=== PATIENT | male | born 1950 | race Hispanic/Latino ===

== ENCOUNTER 2020-01-27 22:50 | Emergency (ER) | payer OTHER ==
[~2020-01-27] VITALS: Ht 170.2 cm; Wt 84.8 kg
[~2020-01-27 22:50] MED LIST: ATENOLOL25 MG PO; HYDROCHLOROTHIA25 MG PO; TERAZOSIN HCL2 MG PO
== END 2020-01-27 23:55 | disposition home or self-care (01) ==
LOC: ED 22:50
DX: U07.1 COVID-19 (principal); I10 Essential (primary) hypertension; Z87.891 Personal history of nicotine dependence; Z79.899 Other long term (current) drug therapy
CPT/HCPCS: 71045; 99283-25; C9803; U0002

== ENCOUNTER 2025-03-01 08:04 | Day surgery (SDC) | payer OTHER ==
[~2025-03-01] VITALS: Ht 170.2 cm; Wt 81.8 kg
[~2025-03-01 08:04] MED LIST changes: +CEFAZOLIN SODIUM 2 GM/20 ML SYR IV SCH; +HEParin SOD (PORCINE) 5,000 UNIT/ML SDV SUB-Q SCH; +IBLOOD GLUCOSE TEST STRIP 1 EA TEST VI PRN; +LACTATED RINGER'S 1,000 ML IV SCH; +LIDOCAINE HCL 1% 5 ML SDV INJ ONE; +LIPITOR20 MG PO; +LISINOPRIL5 MG PO; +OMEPRAZOLE20 MG PO
[2025-03-01 08:28] VITALS: BP 129/88
[2025-03-01] MEDS ORDERED: Ropivacaine HCl 0.5% 30 ML VIAL ONE (09:44)
[2025-03-01] MEDS ORDERED: LIDOCAINE HCL 2% 5 ML SDV ONE ×2 (09:44→10:51)
[2025-03-01] MEDS ORDERED: fentaNYL citrate 100 MCG/2 ML VIAL ONE (10:51)
[2025-03-01] MEDS ORDERED: METOCLOPRAMIDE HCL 10 MG/2 ML SDV IV PRN (12:00)
[2025-03-01] MEDS ORDERED: NALOXONE HCL 0.4 MG SYR IV PRN ×2 (12:00→13:00)
[2025-03-01] MEDS ORDERED: IBLOOD GLUCOSE TEST STRIP 1 EA TEST VI PRN (12:00)
[2025-03-01] MEDS ORDERED: HYDROmorphone HCL 1 MG/ML SYR IV PRN (12:00)
[2025-03-01] MEDS ORDERED: fentaNYL citrate 50 MCG/ML SDV IV PRN (12:00)
[2025-03-01] MEDS ORDERED: DEXAMETHASONE SOD PHOS 4 MG/ML VIAL ONE (12:32)
[2025-03-01] MEDS ORDERED: ACETAMINOPHEN 1,000 MG/100 ML VIAL ONE (12:32)
--- NOTE | 2025-03-01 12:40 | NUR ---
03/01/25 Dereck0 Yolie Neal 1229-PATIENT ARRIVED TO PACU ON 6L MASK NONAROUASABLE ORAL AIRWAY IN PLACE RN DOING JAW THRUST TO MAINTAIN OPEN AIRWAY. DRESSING TO RIGHT GROIN CDI. GUARD AT BEDSIDE PATIENT HAS CUFFS TO LEGS. 1233-PATIENT REACTIVE TO VERBAL STIMULI OPENING EYES ORAL AIRWAY REMOVED. 6L MASK RR EVEN. IVF INFUSING 1235-GILMAR IMPREGNATING TANK OPERATOR AT BEDSIDE ADMINISTERED IV TYLENOL. PATIENT SLEEPING 100% 6L MASK RR EVEN
[2025-03-01] MEDS ORDERED: MOTRIN IB200 MG PO (12:53)
[2025-03-01] MEDS ORDERED: TYLENOL EXTRA500 MG PO (12:53)
[2025-03-01] MEDS ORDERED: HYDROCODON-ACE1 EAC8 PO (12:54)
[2025-03-01] MEDS ORDERED: HYDROCODONE/ACETA 5/325 TAB PO PRN (13:00)
[2025-03-01] MEDS ORDERED: IBUPROFEN 600 MG TAB PO PRN (13:00)
[2025-03-01] MEDS ORDERED: ACETAMINOPHEN 500 MG TAB PO PRN (13:00)
[2025-03-01] MEDS ORDERED: LACTATED RINGER'S 1,000 ML IV SCH (13:00)
[2025-03-01 13:19] VITALS: BP 140/92
--- NOTE | 2025-03-01 13:24 | NUR ---
PATIENT BACK IN DAY SURGERY ROOM FROM PACU. DENIES PAIN. RIGHT GROIN DRESSING CDI. VS CHECKED. IV SITE WNL. SCDs ON. TOLERATING WATER. GIVEN JELLO TO EAT. GUARD AT BEDSIDE.
[2025-03-01 14:05] VITALS: BP 129/85
--- NOTE | 2025-03-01 14:45 | NUR ---
1345: CHECKED PATIENT. DENIES PAIN. PATIENT ASSISTED OOB WITH GUARD. VOID 275 ML. PATIENT TOLERATED GETTING OOB AND AMBULATING WELL. PATIENT SITTING ON SIDE OF BED. 1400: DISCHARGE INSTRUCTIONS GIVEN TO PATIENT. VS CHECKED. 1414: IV DC'D WNL. TIP INTACT. DRESSING APPLIED. 1416: PATIENT DISCHARGED TO HOME WITH TRANSPORT GUARD VIA WHEELCHAIR. ENVELOPE WITH PINK SHEET GIVEN TO GUARD. 1420: REPORT CALLED TO [facility].
[2025-03-01] MEDS ORDERED: SEVOFLURANE 250 ML BTL INH ONE (15:57)
--- NOTE | 2025-03-01 22:31 | EKG ---
[facility] [address] [facility] [place] [address] Signed Sinus bradycardia Otherwise normal ECG Confirmed by Kaleigh Hall MD ([id number]) on 03/01/2025 10:30:53 PM Electronically Signed By: KALEIGH HALL MD 03/01/252230 PATIENT NAME: KRYSTAL WYMAN Electrocardiogram DATE OF : 54 PHYSICIAN: KALEIGH HALL MD REPORT #: [id number] REPORT IS CONFIDENTIAL AND NOT TO BE RELEASED WITHOUT AUTHORIZATION
--- NOTE | 2025-03-02 11:57 | OR ---
[facility] [address] [place], [place] [address] Signed DATE OF OPERATION: 03/01/2025 SURGEON: Caitlin Rowe MD PREOPERATIVE DIAGNOSIS: Large right inguinal hernia. POSTOPERATIVE DIAGNOSIS: Large right inguinal hernia, direct and indirect. PROCEDURES: 1. Repair of right indirect inguinal hernia with implantation of Prolene mesh and excision and ligation of hernia sac. 2. Excision of cord lipoma. ANESTHESIA: General endotracheal, Will Tristan, MANAGER ENTERPRISE and local 10 mL of 0.25% Marcaine with epinephrine. INDICATION: This 74-year-old man is a prisoner at [facility] and has had a reducible right inguinal hernia for quite some time. It is increasingly symptomatic. Imaging study in the past has shown enteric contents within the hernia from my understanding. He is admitted at this time to undergo repair of the right inguinal hernia. He understands the risk of bleeding, infection, recurrence and of course other unforeseen complications including problems with the spermatic cord, chronic pain, and so on. Understanding these risks, he wished to proceed. FINDINGS: The hernia was bulky in part related to a funnel type indirect hernia sac, which also included significant weakening of the floor itself. Hernia sac was opened and from the cord structures showing no sign of sliding component, but there were intestinal loops within it. The hernia sac was ligated and excised at its neck and the attenuated fibers of the transversalis fascia accounting for concurrent direct hernia also noted. Repair consisted of excision of the hernia sac with ligation and implantation of Prolene mesh in an underlay technique. Additionally, a cord lipoma was also excised. The ilioinguinal nerve was identified well and clearly preserved throughout the course of procedure. DESCRIPTION OF PROCEDURE: Electronically Signed By: CAITLIN ROWE MD 03/02/25 1157 PATIENT NAME: KRYSTAL WYMAN OPERATIVE REPORT DATE OF : 54 REPORT #: [id number] PHYSICIAN: CAITLIN ROWE MD PCP: DEE DEE PHELPS MD REPORT IS CONFIDENTIAL AND NOT TO BE RELEASED WITHOUT AUTHORIZATION [facility] [address], [place] [address] Signed The patient was brought to the operating room after undergoing a right ilioinguinal nerve block by the dialysis registered nurse. He was given general anesthetic and preoperative antibiotic Ancef was given. Sequential compression device stockings were used. The lower abdomen was clipped and prepared with a chlorhexidine based solution and draped sterilely. An incision was made cephalad to the pubic tubercle on the right. Dissection was carried through the subcutaneous tissue with electrocautery. The external oblique was incised along its fibers revealing the underlying cord. A relatively small ilioinguinal nerve was identified within the cremasteric muscle fibers of the cord, which was dissected free with sharp dissection and reflected medially around the external oblique out of harm's way. The cord was then mobilized from the floor with blunt and electrocautery dissection and encircled with a [place] drain. Examination of the medial aspect of the cord showed a bulky hernia sac, marked attenuation of the floor was noted as well. Lateral and anterior was a cord lipoma, which was dissected free from the cord and its pedicle secured with 2-0 Vicryl ties excising the lipoma completely. The hernia sac was dissected free from the cord. It was of the type that was funnel shaped incorporating a portion of the inguinal canal. This fully from the cord ultimately and opened and found to have intestinal contents within it, which were easily returned to the peritoneal cavity. The neck of the hernia sac was secured with running 2-0 silk suture so as to ligate the base of the funnel-shaped indirect hernia sac. Redundant sac was amputated and passed for pathology. The fibers of the fascia transversalis were quite markedly attenuated and were incised with electrocautery noting bulky properitoneal fat. Allis clamps applied to the tendon of the transversus abdominis. A segment of ProGrip mesh was cut to an elliptical configuration and secured in an underlay technique with interrupted 2-0 Prolene suture. A defect was cut in the graft to accommodate the cord structures. Care was taken in securing the tails of the graft laterally so as to avoid encumbrance of the regional nerves and to avoid excessive tightness of the repair around the cord. Irrigation was undertaken and 10 mL of 0.25% Marcaine with epinephrine was injected locally. The cord was replaced into the canal as was the ilioinguinal nerve. The external oblique was reapproximated with running 2-0 Vicryl. Evangelina's layer was reapproximated with interrupted 2-0 Vicryl. The skin closed with running subcuticular 3-0 Vicryl. Steri-Strips were applied as was an Acticoat dressing. The patient was ultimately extubated and transferred to recovery room in good condition having suffered no complications. Sponge, needle, and instrument counts were reported as correct x3. Caitlin Rowe MD Electronically Signed By: CAITLIN ROWE MD 03/02/25 1157 PATIENT NAME: KRYSTAL WYMAN OPERATIVE REPORT DATE OF : 54 REPORT #: [id number] PHYSICIAN: CAITLIN ROWE MD PCP: DEE DEE PHELPS MD REPORT IS CONFIDENTIAL AND NOT TO BE RELEASED WITHOUT AUTHORIZATION [facility] [address] [place] [address] Signed /DANUTA /[id number] cc: CONSTANTINO Colon [facility] Copies: ~ Electronically Signed By: CAITLIN ROWE MD 03/02/25 1157 PATIENT NAME: KRYSTAL WYMAN OPERATIVE REPORT DATE OF : 54 REPORT #: [id number] PHYSICIAN: CAITLIN ROWE MD PCP: DEE DEE PHELPS MD REPORT IS CONFIDENTIAL AND NOT TO BE RELEASED WITHOUT AUTHORIZATION
--- NOTE | 2025-03-03 13:49 | PATH ---
[facility] [address] [place], [place] [address] Signed SPECIMEN(S): A LIPOMA OF CORD SPECIMEN(S): B HERNIA SAC SPECIMEN SOURCE: A. LIPOMA OF CORD B. HERNIA SAC CLINICAL HISTORY: Right inguinal hernia FINAL PATHOLOGIC DIAGNOSIS: A. Lipoma of cord: - Cord lipoma. B. Hernia sac: - Mesothelial-lined fibrovascular tissue consistent with hernia sac. DWS:jese MICROSCOPIC EXAMINATION: Histologic sections of all submitted blocks are examined by light microscopy. These findings, together with the gross examination, support the pathologic diagnosis. GROSS DESCRIPTION: A. The specimen, labeled and designated "Shreyas Pritchett, lipoma of cord," is received in formalin and consists of yellow-moncada, smooth, soft fibroadipose tissue fragment that measure 5.5 x 4.5 x 0.8 cm. Specimen is inked. Sectioning through the specimen reveal regular adipose tissue. No abnormalities are grossly identified. Toolsmith sections are submitted in (A1-A2). B. The specimen, labeled and designated "Shreyas Pritchett, hernia sac," is received in formalin and consists of irregular shaped pink-moncada, focally congested fibromembranous tissue fragment that measure 5.0 x 1.9 x 0.8 cm. Sectioning through the specimen is grossly unremarkable. Toolsmith sections are submitted in (B1). JS (under the direct supervision of a pathologist) The Gross Description was prepared using a voice recognition system. The report was reviewed for accuracy; however, sound-alike word errors, addition and/or deletions may occur. If there is any question about this report, please contact Client Services. PATIENT NAME: KRYSTAL WYMAN PATHOLOGY DATE OF : 54 REPORT #: [id number] PHYSICIAN: FRED PATHOLOGY PCP: DEE DEE PHELPS MD REPORT IS CONFIDENTIAL AND NOT TO BE RELEASED WITHOUT AUTHORIZATION [facility] [address], [place] [address] Signed PERFORMING LABORATORY: Technical component was performed by [facility], [address] [place] [id number] (CLIA# [id number]). Professional interpretation was performed by [facility], [address] [place] [phone] (CLIA#: [id number]). Diagnostician: Gustabo Castro MD Pathologist Electronically Signed 03/03/2025 Copies: ~ PATIENT NAME: KRYSTAL WYMAN PATHOLOGY DATE OF : 54 REPORT #: [id number] PHYSICIAN: FRED APONTE PCP: DEE DEE PHELPS MD REPORT IS CONFIDENTIAL AND NOT TO BE RELEASED WITHOUT AUTHORIZATION
== END 2025-03-01 14:16 | disposition home or self-care (01) ==
LOC: DS 08:04
PROVIDERS: ATTEND Surgery
PROC: 0YU50JZ Supplement Right Inguinal Region with Synthetic Substitute, Open Approach (ICD-10-PCS; principal; 2025-03-01 09:45)
PROC: 0VBF0ZZ Excision of Right Spermatic Cord, Open Approach (ICD-10-PCS; principal; 2025-03-01 09:45)
DX: K40.90 Unilateral inguinal hernia, without obstruction or gangrene, not specified as recurrent (principal); D17.6 Benign lipomatous neoplasm of spermatic cord; G89.18 Other acute postprocedural pain; E78.00 Pure hypercholesterolemia, unspecified; Z79.899 Other long term (current) drug therapy
CPT/HCPCS: 00830; 64425; 76942; 93005; 93010; C1781; J0131; J0690; J1100; J1644; J2003; J2405; J2704; J2795; J3010; J7121